=== PATIENT | female | born 1970 | race Caucasian/White ===

== ENCOUNTER 2017-01-03 07:56 | Emergency (ER) | payer MEDICAID ==
[~2017-01-03] VITALS: Ht 162.6 cm; Wt 52.0 kg
[~2017-01-03 07:56] MED LIST: NEURONTIN; NORCO; TRAM50TA3 PO
[2017-01-03 08:09] VITALS: BP 146/90
== END 2017-01-03 08:46 | disposition home or self-care (01) ==
LOC: ER 08:33
DX: G89.29 Other chronic pain (principal); M54.5 Low back pain; R03.0 Elevated blood-pressure reading, without diagnosis of hypertension; M41.9 Scoliosis, unspecified; M19.90 Unspecified osteoarthritis, unspecified site; Z79.899 Other long term (current) drug therapy
CPT/HCPCS: 94640; 99281